=== PATIENT | female | born 1940 | race Caucasian/White ===

== ENCOUNTER → 2017-01-25 | Outpatient (CLI) | payer OTHER, BC | END | disposition home or self-care (01) | LOC: C.LABMFLN 11:40 | PROVIDERS: ATTEND Physician Assistant | DX: M54.5 Low back pain (principal) ==

== ENCOUNTER → 2017-03-10 | Outpatient (CLI) | payer OTHER, BC ==
--- NOTE | 2017-03-16 11:37 | CODING QUERY MEDICAL NECESSITY ---
CQSUPPORTING DIAGNOSIS NEEDED A supporting diagnosis is required for the test/procedure performed on this patient in order for us to be reimbursed by the patient's insurance. Please provide a supporting diagnosis for the following test/procedure listed below next to the test name along with your signature. *If there is no additional diagnosis for this patient that would support the following test/procedure please document that below next to the test/procedure. Test(s)/Procedure(s) that require a supporting diagnosis: DOS 03/10/17 URINE CULTURE TEST TEST ORDERED BY HAN VIDES Provider Signature: Date: Thank you Mariana Alberto [facility] Information Management Once completed, please kindly fax back to [phone] For questions please call [phone]
== END | disposition home or self-care (01) ==
LOC: C.LABMFLN 10:53
PROVIDERS: ATTEND Physician Assistant
DX: M54.5 Low back pain (principal); R35.0 Frequency of micturition; R10.9 Unspecified abdominal pain

== ENCOUNTER → 2017-06-13 | Outpatient (CLI) | payer OTHER, BC ==
[2017-06-13 13:45] LABS: CHOLESTEROL/HDL RATIO 3.3
== END | disposition home or self-care (01) ==
LOC: C.LABMFLN 08:17
PROVIDERS: ATTEND Family Medicine
DX: E78.00 Pure hypercholesterolemia, unspecified (principal); E55.9 Vitamin D deficiency, unspecified; M81.0 Age-related osteoporosis without current pathological fracture

== ENCOUNTER → 2017-09-16 | Outpatient (CLI) | payer OTHER, BC ==
[2017-09-16 13:28] LABS: HEMOGLOBIN A1C 6.6 % (4.5-5.6)
[2017-09-16 13:30] LABS: CREATININE 0.68 mg/dl (0.60-1.20); GLUCOSE,FASTING 112 mg/dl (70-99)
== END | disposition home or self-care (01) ==
LOC: C.LABMFLN 09:17
PROVIDERS: ATTEND Family Medicine
DX: E55.9 Vitamin D deficiency, unspecified (principal); R73.03 Prediabetes; M81.0 Age-related osteoporosis without current pathological fracture